=== PATIENT | male | born 1960 | race Caucasian/White ===

== ENCOUNTER 2024-07-01 17:10 | Inpatient (IN) | payer OTHER, MEDICAID ==
[~2024-07-01] VITALS: Ht 170.2 cm; Wt 46.6 kg
[2024-07-01] VITALS (12 sets, daily range): BP systolic 102–114; BP diastolic 62–68; PULSE 111–130; RESP 16–20; TEMP 100.2–103; O2SAT 95–100
[2024-07-01] MEDS ORDERED: 0.9% SODIUM CHLORIDE 10 ML SYRINGE IVP PRN (17:15)
[2024-07-01] MEDS: CefTRIAXone 1 GM/DEXTROSE 50 ML IV ONE (17:24)
[2024-07-01] MEDS: SODIUM CHLORIDE 0.9% 1,500 ML IV ONE (17:24)
[2024-07-01 17:29] LABS: ABG A-A DIFF O2 428.3 mmHg (10-20.0); ABG BASE EXCESS 3.8 mmol/L (-2.0-3.0); ABG HCO3 27.6 mmol/L (21.0-28.0); ABG METHEMOGLOBIN 1.9 % (0.0-1.5); ABG OXYGEN CONTENT 9.6 mL/dL (15.0-23.0); ABG OXYGEN SATURATION 99.7 % (94.0-98.0); ABG OXYHEMOGLOBIN 96.8 % (94.0-98.0); ABG PCO2 39 mmHg (32.0-48.0); ABG PH 7.466 (7.350-7.450); ABG TOTAL HEMOGLOBIN 6.5 G/dL (13.5-17.5); ALLEN TEST, BLOOD GAS Positive; O2 DEVICE,BLOOD GAS NON REBREATHER (ROOM AIR); PO2, ARTERIAL BG 250.5 mmHg (83.0-108.0); SITE, BLOOD GAS RT RADIAL; SOURCE, BLOOD GAS ARTERIAL; TEMPERATURE, FAHRENHEIT, BG 95.1 FAHREN (96.0-98.6)
[2024-07-01] MEDS: ALBUTEROL SULFATE 2.5 MG/0.5 ML NEB SOLUTION NEB ONE ×2 (17:30→17:36)
[2024-07-01] MEDS: IPRATROPIUM BROMIDE 0.5 MG/2.5 ML NEB SOLUTION NEB ONE ×2 (17:30→17:36)
[2024-07-01 17:51] LABS: BASOPHILS % (AUTO) 0.4 % (0.0-2.0); EOSINOPHILS % (AUTO) 0.8 % (1.0-6.0); HEMATOCRIT 21.6 % (41-53); LYMPHOCYTES # (AUTO) 0.8 K/uL (1.0-4.8); LYMPHOCYTES % (AUTO) 6.1 % (22.0-44.0); MEAN CORPUSCULAR HEMOGLOBIN 30.9 pg (26.0-34.0); MEAN CORPUSCULAR HGB CONC 30.8 G/dL (31.0-37.0); MEAN CORPUSCULAR VOLUME 101 fL (80-100); MONOCYTES # (AUTO) 1.5 K/uL (0.1-1.0); MONOCYTES % (AUTO) 11.6 % (2.0-9.0); NEUTROPHILS # (AUTO) 10.8 K/uL (1.8-7.7); NEUTROPHILS % (AUTO) 81.1 % (40.0-70.0); PLATELET COUNT (AUTO) 490 K/uL (150-450); RED BLOOD CELL COUNT(AUTO) 2.15 MIL/uL (4.50-5.90); RED CELL DISTRIBUTION WIDTH 19.4 % (11.5-14.5); WHITE BLOOD COUNT (AUTO) 13.3 K/uL (4.5-11.0)
[2024-07-01 17:52] LABS: APPEARANCE,URINE CLEAR (CLEAR); BILIRUBIN,URINE NEGATIVE (NEGATIVE); COLOR,URINE YELLOW (YELLOW); GLUCOSE, URINE (UA) NEGATIVE (NEGATIVE); KETONES,URINE NEGATIVE (NEGATIVE); LEUKOCYTE ESTERASE ,URINE NEGATIVE (NEGATIVE); NITRATE,URINE NEGATIVE (NEGATIVE); OCCULT BLOOD,URINE NEGATIVE (NEGATIVE); PH,URINE 5.5 (5.0-8.0); PROTEIN,URINE TRACE mg/dL (NEGATIVE); SPECIFIC GRAVITIY, URINE 1.017 (1.003-1.030); UROBILINOGEN,URINE <=1.0 mg/dL (<=1.0)
[2024-07-01 17:56] LABS: ANION GAP 7 mmol/L (8-16); CALCIUM, TOTAL 9.6 mg/dL (8.8-10.5); CARBON DIOXIDE 31 mmol/L (22-29); CHLORIDE 107 mmol/L (98-107); CREATININE 0.77 mg/dL (0.60-1.30); GLOMERULAR FILTR. RATE CALC > 60 mL/min (>60); GLUCOSE,RANDOM 110 mg/dL (70-110); POTASSIUM 4.3 mmol/L (3.5-5.1); SODIUM SERUM 145 mmol/L (136-145); UREA NITROGEN, BLOOD 28 mg/dL (7-18)
[2024-07-01 17:57] LABS: HEMOGLOBIN 6.6 g/dL (13.5-17.5)
[2024-07-01 17:59] LABS: PROTHROMBIN TIME 11.4 SEC (9.4-11.6)
[2024-07-01 18:05] LABS: TROPONIN I-HIGH SENSITIVITY 25 ng/L (<76)
[2024-07-01 18:06] LABS: LACTIC ACID 2.7 mmol/L (0.4-2.0)
[2024-07-01 18:16] LABS: RBC MORPHOLOGY COMMENT NORMAL RBC MORPH
[2024-07-01 18:53] LABS: B-TYPE NATRIURETIC PEPTIDE 53 pg/mL (0-100)
[2024-07-01] MEDS ORDERED: ALBUTEROL SULFATE 2.5 MG/0.5 ML NEB SOLUTION NEB PRN (19:45)
[2024-07-01] MEDS ORDERED: IPRATROPIUM BROMIDE 0.5 MG/2.5 ML NEB SOLUTION NEB PRN (19:45)
[2024-07-01] MEDS ORDERED: ONDANSETRON HCL 4 MG/2 ML VIAL IVP PRN (19:45)
[2024-07-01 20:13] LABS: % IRON SATURATION 3.7 % (30-44)
[2024-07-01 20:14] LABS: ALANINE AMINOTRANSFERASE 107 U/L (12-78); ALBUMIN 2.3 g/dL (3.4-5.0); ALKALINE PHOSPHATASE 225 U/L (46-116); ASPARTATE AMINOTRANSFERASE 60 U/L (15-37); BILIRUBIN,TOTAL 0.4 mg/dL (0.1-1.0); TOTAL PROTEIN, SERUM 6.5 g/dL (6.4-8.2)
[2024-07-01] MEDS: PIPERACILLIN/TAZO 3.375 GM/D5W 50 ML IV ONE (20:26)
[2024-07-01] MEDS: PANTOPRAZOLE SODIUM 80 MG in SODIUM CHLORIDE 0.9% 100 ML IV SCH (20:27)
[2024-07-01] MEDS: PANTOPRAZOLE SODIUM 40 MG/VIAL IVP ONE (20:27)
[2024-07-01] MEDS: DOCUSATE SODIUM 100 MG/10 ML LIQUID UDCUP GT SCH (21:00)
[2024-07-01] MEDS: ACETAMINOPHEN 1000 MG/ISO-OSM 100 ML IV ONE (21:24)
[2024-07-01] MEDS: ALBUTEROL SULFATE 2.5 MG/0.5 ML NEB SOLUTION NEB SCH (21:44)
[2024-07-01] MEDS: IPRATROPIUM BROMIDE 0.5 MG/2.5 ML NEB SOLUTION NEB SCH (21:44)
[2024-07-01] MEDS: CHLORHEXIDINE GLUCONATE 2% TOWELETTE [2'S/6'S] TP SCH (23:20)
[2024-07-01] MEDS: VANCOMYCIN 1.25 GM/WATER(PEG) 250 ML IV ONE (23:20)
[2024-07-02] VITALS (16 sets, daily range): BP systolic 91–102; BP diastolic 49–57; PULSE 96–111; RESP 17–20; TEMP 98–99.8; O2SAT 91–100
[2024-07-02] MEDS ORDERED: HEPARIN SODIUM,PORCINE 5,000 UNITS/ML VIAL SQ SCH
[2024-07-02] MEDS: PANTOPRAZOLE SODIUM 80 MG in SODIUM CHLORIDE 0.9% 100 ML IV SCH (05:07)
[2024-07-02] MEDS: PIPERACILLIN/TAZO 3.375 GM/D5W 50 ML IV SCH (05:08)
[2024-07-02 05:53] LABS: BASOPHILS % (AUTO) 0.2 % (0.0-2.0); EOSINOPHILS % (AUTO) 0.3 % (1.0-6.0); HEMATOCRIT 27.9 % (41-53); HEMOGLOBIN 8.8 g/dL (13.5-17.5); LYMPHOCYTES # (AUTO) 1.2 K/uL (1.0-4.8); LYMPHOCYTES % (AUTO) 7.5 % (22.0-44.0); MEAN CORPUSCULAR HEMOGLOBIN 31.2 pg (26.0-34.0); MEAN CORPUSCULAR HGB CONC 31.7 G/dL (31.0-37.0); MEAN CORPUSCULAR VOLUME 98 fL (80-100); MONOCYTES # (AUTO) 2.2 K/uL (0.1-1.0); MONOCYTES % (AUTO) 13.1 % (2.0-9.0); NEUTROPHILS % (AUTO) 78.9 % (40.0-70.0); PLATELET COUNT (AUTO) 423 K/uL (150-450); RED BLOOD CELL COUNT(AUTO) 2.83 MIL/uL (4.50-5.90); RED CELL DISTRIBUTION WIDTH 18.3 % (11.5-14.5); WHITE BLOOD COUNT (AUTO) 16.5 K/uL (4.5-11.0)
[2024-07-02 06:10] LABS: ANION GAP 11 mmol/L (8-16); CALCIUM, TOTAL 9.1 mg/dL (8.8-10.5); CARBON DIOXIDE 26 mmol/L (22-29); CHLORIDE 111 mmol/L (98-107); GLOMERULAR FILTR. RATE CALC > 60 mL/min (>60); GLUCOSE,RANDOM 87 mg/dL (70-110); POTASSIUM 3.9 mmol/L (3.5-5.1); SODIUM SERUM 148 mmol/L (136-145); UREA NITROGEN, BLOOD 23 mg/dL (7-18)
[2024-07-02] MEDS ORDERED: VANCOMYCIN HCL 750 MG in DEXTROSE 5%-WATER 250 ML IV SCH (08:00)
[2024-07-02] MEDS ORDERED: ASPIRIN 81 MG CHEWABLE TABLET GT SCH (08:00)
[2024-07-02] MEDS: VANCOMYCIN 1.5 GM/WATER(PEG) 300 ML IV SCH (09:20)
[2024-07-02] MEDS: PIPERACILLIN SODIUM/TAZOBACTAM 4.5 GM in DEXTROSE 5%-WATER 100 ML IV SCH (09:55)
[2024-07-02] MEDS: ATORVASTATIN CALCIUM 40 MG TABLET GT SCH (09:55)
[2024-07-02] MEDS ORDERED: 0.9% SODIUM CHLORIDE 10 ML SYRINGE IVP ONE (17:06)
[2024-07-02] MEDS ORDERED: IOHEXOL 350 MG/ML 100 ML VIAL ONE (17:07)
[2024-07-02 20:27] LABS: INFLUENZA A-RTPCR,COMBO NEGATIVE (NEGATIVE); INFLUENZA B-RTPCR,COMBO NEGATIVE (NEGATIVE); RESPIRATORY SYNCYTIAL VRS-PCR NEGATIVE (NEGATIVE); SARS COVID19 RTPCR, COMBO NEGATIVE (NEGATIVE)
[2024-07-02] MEDS: HEPARIN SODIUM,PORCINE 5,000 UNITS/ML VIAL SQ SCH (23:21)
[2024-07-02] MEDS: SODIUM CHLORIDE 0.9% 1,000 ML IV ONE (23:24)
[2024-07-03] VITALS (13 sets, daily range): BP systolic 100–125; BP diastolic 53–71; PULSE 84–108; RESP 17–18; TEMP 97.9–98.9; O2SAT 96–99
[2024-07-03 07:00] LABS: BASOPHILS % (AUTO) 0.3 % (0.0-2.0); EOSINOPHILS % (AUTO) 2.1 % (1.0-6.0); HEMATOCRIT 21.9 % (41-53); HEMOGLOBIN 7.2 g/dL (13.5-17.5); LYMPHOCYTES # (AUTO) 0.9 K/uL (1.0-4.8); LYMPHOCYTES % (AUTO) 6.4 % (22.0-44.0); MEAN CORPUSCULAR HEMOGLOBIN 31.5 pg (26.0-34.0); MEAN CORPUSCULAR HGB CONC 32.9 G/dL (31.0-37.0); MEAN CORPUSCULAR VOLUME 96 fL (80-100); MONOCYTES # (AUTO) 1.5 K/uL (0.1-1.0); MONOCYTES % (AUTO) 10.3 % (2.0-9.0); NEUTROPHILS # (AUTO) 11.5 K/uL (1.8-7.7); NEUTROPHILS % (AUTO) 80.9 % (40.0-70.0); PLATELET COUNT (AUTO) 431 K/uL (150-450); RED BLOOD CELL COUNT(AUTO) 2.29 MIL/uL (4.50-5.90); RED CELL DISTRIBUTION WIDTH 18.9 % (11.5-14.5); WHITE BLOOD COUNT (AUTO) 14.2 K/uL (4.5-11.0)
[2024-07-03 07:32] LABS: ANION GAP 11 mmol/L (8-16); CALCIUM, TOTAL 9.5 mg/dL (8.8-10.5); CARBON DIOXIDE 25 mmol/L (22-29); CHLORIDE 112 mmol/L (98-107); CREATININE 0.67 mg/dL (0.60-1.30); GLOMERULAR FILTR. RATE CALC > 60 mL/min (>60); GLUCOSE,RANDOM 88 mg/dL (70-110); SODIUM SERUM 148 mmol/L (136-145); UREA NITROGEN, BLOOD 20 mg/dL (7-18); VANCOMYCIN,RANDOM 40.5 mcg/mL (25.0-50.0)
[2024-07-03] MEDS: ASPIRIN 81 MG CHEWABLE TABLET GT SCH (08:39)
[2024-07-03] MEDS: DEXTROSE 5%-WATER 1,000 ML IV ONE (14:27)
[2024-07-03 17:49] LABS: TROPONIN I-HIGH SENSITIVITY 74 ng/L (<76)
[2024-07-03] MEDS: POTASSIUM CHLORIDE 10% 40 MEQ/30 ML LIQUID UDCUP PEG ONE (20:54)
[2024-07-03] MEDS: VANCOMYCIN HCL 750 MG in DEXTROSE 5%-WATER 250 ML IV SCH (20:55)
[2024-07-04] VITALS (17 sets, daily range): BP systolic 106–119; BP diastolic 60–82; PULSE 95–118; RESP 17–24; TEMP 98–99.5; O2SAT 92–100
[2024-07-04 07:43] LABS: BASOPHILS % (AUTO) 0.4 % (0.0-2.0); EOSINOPHILS % (AUTO) 1.4 % (1.0-6.0); HEMATOCRIT 22.3 % (41-53); HEMOGLOBIN 7.1 g/dL (13.5-17.5); LYMPHOCYTES # (AUTO) 0.8 K/uL (1.0-4.8); LYMPHOCYTES % (AUTO) 5.1 % (22.0-44.0); MEAN CORPUSCULAR HEMOGLOBIN 30.2 pg (26.0-34.0); MEAN CORPUSCULAR HGB CONC 31.6 G/dL (31.0-37.0); MEAN CORPUSCULAR VOLUME 96 fL (80-100); MONOCYTES # (AUTO) 1.8 K/uL (0.1-1.0); MONOCYTES % (AUTO) 11.9 % (2.0-9.0); NEUTROPHILS % (AUTO) 81.2 % (40.0-70.0); PLATELET COUNT (AUTO) 458 K/uL (150-450); RED BLOOD CELL COUNT(AUTO) 2.33 MIL/uL (4.50-5.90); RED CELL DISTRIBUTION WIDTH 18.4 % (11.5-14.5); WHITE BLOOD COUNT (AUTO) 14.8 K/uL (4.5-11.0)
[2024-07-04 07:55] LABS: ANION GAP 6 mmol/L (8-16); CALCIUM, TOTAL 8.9 mg/dL (8.8-10.5); CARBON DIOXIDE 29 mmol/L (22-29); CHLORIDE 107 mmol/L (98-107); CREATININE 0.61 mg/dL (0.60-1.30); GLOMERULAR FILTR. RATE CALC > 60 mL/min (>60); GLUCOSE,RANDOM 113 mg/dL (70-110); POTASSIUM 3.1 mmol/L (3.5-5.1); SODIUM SERUM 142 mmol/L (136-145); UREA NITROGEN, BLOOD 12 mg/dL (7-18)
[2024-07-04 08:01] LABS: TROPONIN I-HIGH SENSITIVITY 43 ng/L (<76)
[2024-07-04] MEDS ORDERED: POTASSIUM CHL 10 MEQ/WATER 50 ML IV PRN (12:00)
[2024-07-04] MEDS: SCOPOLAMINE HYDROBROMIDE 1 MG/72 HOUR PATCH TD SCH (13:34)
[2024-07-04] MEDS: POTASSIUM CHLORIDE 10% 40 MEQ/30 ML LIQUID UDCUP GT PRN (16:26)
[2024-07-04] MEDS: FUROSEMIDE 20 MG/2 ML VIAL IVP ONE (16:26)
[2024-07-04] MEDS: THIAMINE 100 MG/ML 2 ML VIAL IVP SCH (16:30)
[2024-07-04] MEDS: MULTIVITAMINS, THERAPEUTIC 15 ML UDCUP GT SCH (16:31)
[2024-07-04] MEDS ORDERED: SODIUM CHLORIDE 0.9% 250 ML IV ONE (20:41)
[2024-07-05] VITALS (21 sets, daily range): BP systolic 90–117; BP diastolic 46–70; PULSE 81–108; RESP 17–20; TEMP 97.6–99.6; O2SAT 96–100
[2024-07-05] MEDS: ACETAMINOPHEN 325 MG TABLET PO PRN (00:33)
[2024-07-05] MEDS ORDERED: SODIUM CHLORIDE 0.9% 100 ML ONE (03:04)
[2024-07-05 06:52] LABS: ANION GAP 5 mmol/L (8-16); CALCIUM, TOTAL 9.4 mg/dL (8.8-10.5); CARBON DIOXIDE 29 mmol/L (22-29); CHLORIDE 101 mmol/L (98-107); CREATININE 0.68 mg/dL (0.60-1.30); GLOMERULAR FILTR. RATE CALC > 60 mL/min (>60); GLUCOSE,RANDOM 109 mg/dL (70-110); POTASSIUM 3.1 mmol/L (3.5-5.1); SODIUM SERUM 139 mmol/L (136-145); UREA NITROGEN, BLOOD 5 mg/dL (7-18); VANCOMYCIN,RANDOM 24.8 mcg/mL (25.0-50.0)
[2024-07-05 13:22] LABS: HEMATOCRIT 28.1 % (41-53); HEMOGLOBIN 9.3 g/dL (13.5-17.5)
[2024-07-05 13:46] LABS: GLUCOMETER DEV NAME(LOC) 5N.2C; GLUCOSE,POINT OF CARE 106 MG/DL (70-110)
[2024-07-05] MEDS: PIPERACILLIN/TAZO 3.375 GM/D5W 50 ML IV SCH (17:19)
[2024-07-06] VITALS (15 sets, daily range): BP systolic 111–140; BP diastolic 63–73; PULSE 97–131; RESP 16–24; TEMP 97.4–98.4; O2SAT 90–100
[2024-07-06 04:16] LABS: GLUCOMETER DEV NAME(LOC) 5S.2D; GLUCOSE,POINT OF CARE 82 MG/DL (70-110)
[2024-07-06 04:16] LABS: GLUCOMETER DEV NAME(LOC) 5S.2D; GLUCOSE,POINT OF CARE 106 MG/DL (70-110)
[2024-07-06 07:23] LABS: HEMATOCRIT 27.2 % (41-53); HEMOGLOBIN 8.8 g/dL (13.5-17.5)
[2024-07-06 07:37] LABS: ANION GAP 7 mmol/L (8-16); CALCIUM, TOTAL 9.3 mg/dL (8.8-10.5); CARBON DIOXIDE 29 mmol/L (22-29); CHLORIDE 100 mmol/L (98-107); CREATININE 0.65 mg/dL (0.60-1.30); GLOMERULAR FILTR. RATE CALC > 60 mL/min (>60); GLUCOSE,RANDOM 83 mg/dL (70-110); POTASSIUM 3.2 mmol/L (3.5-5.1); SODIUM SERUM 136 mmol/L (136-145); UREA NITROGEN, BLOOD 8 mg/dL (7-18)
[2024-07-06] MEDS: VANCOMYCIN 500 MG/WATER(PEG) 100 ML IV SCH (09:27)
[2024-07-06 11:16] LABS: GLUCOMETER DEV NAME(LOC) 5S.2D; GLUCOSE,POINT OF CARE 93 MG/DL (70-110)
[2024-07-06] MEDS ORDERED: SODIUM CHLORIDE 0.9% 250 ML IV ONE (17:56)
[2024-07-07] VITALS (13 sets, daily range): BP systolic 116–150; BP diastolic 65–92; PULSE 102–127; RESP 18–24; TEMP 97.1–100.2; O2SAT 90–100
[2024-07-07 00:06] LABS: GLUCOMETER DEV NAME(LOC) 5N.2C; GLUCOSE,POINT OF CARE 106 MG/DL (70-110)
[2024-07-07 00:06] LABS: GLUCOMETER DEV NAME(LOC) 5S.2D; GLUCOSE,POINT OF CARE 118 MG/DL (70-110)
[2024-07-07 01:16] LABS: GLUCOMETER DEV NAME(LOC) 5N.2C; GLUCOSE,POINT OF CARE 112 MG/DL (70-110)
[2024-07-07 07:45] LABS: ANION GAP 7 mmol/L (8-16); CALCIUM, TOTAL 9.4 mg/dL (8.8-10.5); CARBON DIOXIDE 32 mmol/L (22-29); CHLORIDE 100 mmol/L (98-107); CREATININE 0.58 mg/dL (0.60-1.30); GLOMERULAR FILTR. RATE CALC > 60 mL/min (>60); GLUCOSE,RANDOM 99 mg/dL (70-110); POTASSIUM 3.6 mmol/L (3.5-5.1); SODIUM SERUM 139 mmol/L (136-145); UREA NITROGEN, BLOOD 8 mg/dL (7-18)
[2024-07-07 09:13] LABS: HEMATOCRIT 28.8 % (41-53); HEMOGLOBIN 9.2 g/dL (13.5-17.5)
[2024-07-07 12:41] LABS: GLUCOMETER DEV NAME(LOC) 5N.2C; GLUCOSE,POINT OF CARE 121 MG/DL (70-110)
[2024-07-07 13:26] LABS: GLUCOMETER DEV NAME(LOC) 5S.2D; GLUCOSE,POINT OF CARE 130 MG/DL (70-110)
[2024-07-07 19:15] LABS: GLUCOMETER DEV NAME(LOC) 5S.2D; GLUCOSE,POINT OF CARE 124 MG/DL (70-110)
[2024-07-08] VITALS (15 sets, daily range): BP systolic 105–138; BP diastolic 57–75; PULSE 88–135; RESP 18–24; TEMP 97.8–100.5; O2SAT 92–100
[2024-07-08 01:40] LABS: GLUCOMETER DEV NAME(LOC) 5S.2D; GLUCOSE,POINT OF CARE 137 MG/DL (70-110)
[2024-07-08 08:10] LABS: ANION GAP 3 mmol/L (8-16); CALCIUM, TOTAL 9.4 mg/dL (8.8-10.5); CARBON DIOXIDE 36 mmol/L (22-29); CHLORIDE 100 mmol/L (98-107); CREATININE 0.62 mg/dL (0.60-1.30); GLOMERULAR FILTR. RATE CALC > 60 mL/min (>60); GLUCOSE,RANDOM 116 mg/dL (70-110); POTASSIUM 3.2 mmol/L (3.5-5.1); SODIUM SERUM 139 mmol/L (136-145); UREA NITROGEN, BLOOD 8 mg/dL (7-18); VANCOMYCIN,RANDOM 12.5 mcg/mL (25.0-50.0)
[2024-07-08 09:36] LABS: HEMATOCRIT 30.2 % (41-53); HEMOGLOBIN 9.7 g/dL (13.5-17.5)
[2024-07-08 11:40] LABS: GLUCOMETER DEV NAME(LOC) 5S.2D; GLUCOSE,POINT OF CARE 120 MG/DL (70-110)
[2024-07-08 17:26] LABS: GLUCOMETER DEV NAME(LOC) 5S.2D; GLUCOSE,POINT OF CARE 133 MG/DL (70-110)
[2024-07-08 18:35] LABS: GLUCOMETER DEV NAME(LOC) 5S.2D; GLUCOSE,POINT OF CARE 140 MG/DL (70-110)
[2024-07-08] MEDS: PANTOPRAZOLE SODIUM 40 MG/VIAL IVP SCH (19:59)
[2024-07-08] MEDS: VANCOMYCIN HCL 750 MG in DEXTROSE 5%-WATER 250 ML IV SCH (19:59)
[2024-07-08] MEDS: METOPROLOL TARTRATE 5 MG/5 ML VIAL IVP ONE (22:33)
[2024-07-09] VITALS (9 sets, daily range): BP systolic 96–117; BP diastolic 56–64; PULSE 116–139; RESP 18–29; TEMP 98.7–100.8; O2SAT 92–98
[2024-07-09] MEDS: METOPROLOL TARTRATE 5 MG/5 ML VIAL IVP ONE (00:42)
[2024-07-09 01:25] LABS: GLUCOMETER DEV NAME(LOC) 5S.2D; GLUCOSE,POINT OF CARE 202 MG/DL (70-110)
[2024-07-09 05:31] LABS: GLUCOMETER DEV NAME(LOC) 5S.2D; GLUCOSE,POINT OF CARE 131 MG/DL (70-110)
[2024-07-09 07:10] LABS: HEMATOCRIT 31.6 % (41-53); HEMOGLOBIN 10.1 g/dL (13.5-17.5)
[2024-07-09 07:26] LABS: ANION GAP 6 mmol/L (8-16); CARBON DIOXIDE 33 mmol/L (22-29); CHLORIDE 100 mmol/L (98-107); CREATININE 0.89 mg/dL (0.60-1.30); GLOMERULAR FILTR. RATE CALC > 60 mL/min (>60); GLUCOSE,RANDOM 122 mg/dL (70-110); SODIUM SERUM 139 mmol/L (136-145); UREA NITROGEN, BLOOD 18 mg/dL (7-18)
[2024-07-09 08:53] LABS: BASOPHILS % (AUTO) 0.5 % (0.0-2.0); EOSINOPHILS % (AUTO) 0.6 % (1.0-6.0); HEMATOCRIT 30.9 % (41-53); HEMOGLOBIN 9.9 g/dL (13.5-17.5); LYMPHOCYTES # (AUTO) 0.5 K/uL (1.0-4.8); MEAN CORPUSCULAR HEMOGLOBIN 29.8 pg (26.0-34.0); MEAN CORPUSCULAR HGB CONC 32.1 G/dL (31.0-37.0); MEAN CORPUSCULAR VOLUME 93 fL (80-100); MONOCYTES # (AUTO) 1.7 K/uL (0.1-1.0); PLATELET COUNT (AUTO) 714 K/uL (150-450); RED BLOOD CELL COUNT(AUTO) 3.33 MIL/uL (4.50-5.90); RED CELL DISTRIBUTION WIDTH 18.4 % (11.5-14.5); WHITE BLOOD COUNT (AUTO) 18.4 K/uL (4.5-11.0)
[2024-07-09 09:01] LABS: NEUTROPHILS % (AUTO) 86.9 % (40.0-70.0)
[2024-07-09 09:22] LABS: ABG BASE EXCESS 7.4 mmol/L (-2.0-3.0); ABG CARBOXYHEMOGLOBIN 0.1 % (0.5-1.5); ABG HCO3 30.2 mmol/L (21.0-28.0); ABG METHEMOGLOBIN 0.3 % (0.0-1.5); ABG OXYGEN CONTENT 15.5 mL/dL (15.0-23.0); ABG OXYGEN SATURATION 99.2 % (94.0-98.0); ABG OXYHEMOGLOBIN 98.8 % (94.0-98.0); ABG PCO2 53 mmHg (32.0-48.0); ABG PH 7.403 (7.350-7.450); PO2, ARTERIAL BG 142.4 mmHg (83.0-108.0); SOURCE, BLOOD GAS ARTERIAL; TEMPERATURE, FAHRENHEIT, BG 99.5 FAHREN (96.0-98.6)
[2024-07-09 09:23] LABS: ALLEN TEST, BLOOD GAS POS; O2 DEVICE,BLOOD GAS NON-REB (ROOM AIR); SITE, BLOOD GAS LFT BRACHIAL
[2024-07-09 09:32] LABS: THYROID STIMULATING HORMONE 1.81 uIU/mL (0.36-3.74)
[2024-07-09] MEDS: FUROSEMIDE 20 MG/2 ML VIAL IVP ONE (10:20)
[2024-07-09 12:31] LABS: GLUCOMETER DEV NAME(LOC) 5S.2D; GLUCOSE,POINT OF CARE 179 MG/DL (70-110)
[2024-07-09 18:46] LABS: GLUCOMETER DEV NAME(LOC) 5S.2D; GLUCOSE,POINT OF CARE 159 MG/DL (70-110)
[2024-07-09 19:50] LABS: INFLUENZA A-RTPCR,COMBO NEGATIVE (NEGATIVE); INFLUENZA B-RTPCR,COMBO NEGATIVE (NEGATIVE); RESPIRATORY SYNCYTIAL VRS-PCR NEGATIVE (NEGATIVE); SARS COVID19 RTPCR, COMBO NEGATIVE (NEGATIVE)
[2024-07-09 21:26] LABS: GLUCOMETER DEV NAME(LOC) 5N.1D; GLUCOSE,POINT OF CARE 159 MG/DL (70-110)
[2024-07-10] VITALS (15 sets, daily range): BP systolic 97–137; BP diastolic 55–92; PULSE 107–138; RESP 20–28; TEMP 98.4–99.9; O2SAT 93–99
[2024-07-10 01:16] LABS: GLUCOMETER DEV NAME(LOC) 5S.2D; GLUCOSE,POINT OF CARE 157 MG/DL (70-110)
[2024-07-10 06:21] LABS: GLUCOMETER DEV NAME(LOC) 5N.2C; GLUCOSE,POINT OF CARE 132 MG/DL (70-110)
[2024-07-10 07:46] LABS: HEMATOCRIT 27.3 % (41-53); HEMOGLOBIN 8.9 g/dL (13.5-17.5)
[2024-07-10 08:03] LABS: ANION GAP 3 mmol/L (8-16); CALCIUM, TOTAL 9.3 mg/dL (8.8-10.5); CARBON DIOXIDE 37 mmol/L (22-29); CHLORIDE 98 mmol/L (98-107); CREATININE 0.65 mg/dL (0.60-1.30); GLOMERULAR FILTR. RATE CALC > 60 mL/min (>60); GLUCOSE,RANDOM 139 mg/dL (70-110); SODIUM SERUM 138 mmol/L (136-145); UREA NITROGEN, BLOOD 18 mg/dL (7-18)
[2024-07-10 09:18] LABS: CANDIDA AURIS PCR,SURVEILLANCE Not Detected C(t) (Not Detectd)
[2024-07-10] MEDS: FUROSEMIDE 20 MG/2 ML VIAL IVP ONE (13:57)
[2024-07-10 17:21] LABS: GLUCOMETER DEV NAME(LOC) 5N.2C; GLUCOSE,POINT OF CARE 128 MG/DL (70-110)
[2024-07-10] MEDS: METOPROLOL TARTRATE 5 MG/5 ML VIAL IVP ONE (17:35)
[2024-07-11] VITALS (13 sets, daily range): BP systolic 101–128; BP diastolic 66–78; PULSE 115–127; RESP 16–27; TEMP 97.8–99.5; O2SAT 95–100
[2024-07-11 00:20] LABS: GLUCOMETER DEV NAME(LOC) 5N.2C; GLUCOSE,POINT OF CARE 145 MG/DL (70-110)
[2024-07-11 06:36] LABS: BASOPHILS % (AUTO) 0.2 % (0.0-2.0); EOSINOPHILS % (AUTO) 1.8 % (1.0-6.0); HEMATOCRIT 29.4 % (41-53); HEMOGLOBIN 9.5 g/dL (13.5-17.5); LYMPHOCYTES # (AUTO) 1.3 K/uL (1.0-4.8); LYMPHOCYTES % (AUTO) 5.7 % (22.0-44.0); MEAN CORPUSCULAR HEMOGLOBIN 29.7 pg (26.0-34.0); MEAN CORPUSCULAR HGB CONC 32.4 G/dL (31.0-37.0); MEAN CORPUSCULAR VOLUME 92 fL (80-100); MONOCYTES # (AUTO) 1.6 K/uL (0.1-1.0); NEUTROPHILS # (AUTO) 19.2 K/uL (1.8-7.7); PLATELET COUNT (AUTO) 657 K/uL (150-450); RED CELL DISTRIBUTION WIDTH 18.2 % (11.5-14.5); WHITE BLOOD COUNT (AUTO) 22.5 K/uL (4.5-11.0)
[2024-07-11 06:40] LABS: NEUTROPHILS % (AUTO) 85.3 % (40.0-70.0)
[2024-07-11 06:54] LABS: ANION GAP 2 mmol/L (8-16); CALCIUM, TOTAL 9.9 mg/dL (8.8-10.5); CARBON DIOXIDE 39 mmol/L (22-29); CHLORIDE 98 mmol/L (98-107); CREATININE 0.61 mg/dL (0.60-1.30); GLOMERULAR FILTR. RATE CALC > 60 mL/min (>60); GLUCOSE,RANDOM 131 mg/dL (70-110); POTASSIUM 3.8 mmol/L (3.5-5.1); SODIUM SERUM 139 mmol/L (136-145); UREA NITROGEN, BLOOD 17 mg/dL (7-18)
[2024-07-11 07:51] LABS: GLUCOMETER DEV NAME(LOC) 5N.2C; GLUCOSE,POINT OF CARE 138 MG/DL (70-110)
[2024-07-11] MEDS: METOPROLOL TARTRATE 5 MG/5 ML VIAL IVP PRN (13:49)
[2024-07-12] VITALS (12 sets, daily range): BP systolic 104–126; BP diastolic 63–75; PULSE 103–112; RESP 19–22; TEMP 97.4–99.2; O2SAT 91–100
[2024-07-12 05:01] LABS: GLUCOMETER DEV NAME(LOC) 5N.2C; GLUCOSE,POINT OF CARE 126 MG/DL (70-110)
[2024-07-12 07:31] LABS: GLUCOMETER DEV NAME(LOC) 5N.2C; GLUCOSE,POINT OF CARE 146 MG/DL (70-110)
[2024-07-12] MEDS ORDERED: SODIUM CHLORIDE 0.9% 250 ML IV ONE ×2 (08:33→22:17)
[2024-07-12 20:31] LABS: GLUCOMETER DEV NAME(LOC) 5N.2C; GLUCOSE,POINT OF CARE 149 MG/DL (70-110)
[2024-07-13] VITALS (14 sets, daily range): BP systolic 117–132; BP diastolic 65–83; PULSE 54–121; RESP 16–26; TEMP 97.8–99.1; O2SAT 90–100
[2024-07-13 07:10] LABS: ANION GAP 2 mmol/L (8-16); CALCIUM, TOTAL 9.8 mg/dL (8.8-10.5); CARBON DIOXIDE 37 mmol/L (22-29); CHLORIDE 98 mmol/L (98-107); CREATININE 0.61 mg/dL (0.60-1.30); GLOMERULAR FILTR. RATE CALC > 60 mL/min (>60); GLUCOSE,RANDOM 141 mg/dL (70-110); POTASSIUM 3.5 mmol/L (3.5-5.1); SODIUM SERUM 137 mmol/L (136-145); UREA NITROGEN, BLOOD 19 mg/dL (7-18)
[2024-07-13] MEDS ORDERED: SODIUM CHLORIDE 0.9% 1,000 ML ONE (21:15)
[2024-07-14] VITALS (10 sets, daily range): BP systolic 112–139; BP diastolic 70–84; PULSE 100–135; RESP 17–31; TEMP 97.8–99; O2SAT 84–98
[2024-07-14] MEDS ORDERED: MORPHINE SULFATE 2 MG/ML SYRINGE IVP PRN (12:30)
[2024-07-14 13:06] LABS: BASOPHILS % (AUTO) 0.6 % (0.0-2.0); EOSINOPHILS % (AUTO) 1.1 % (1.0-6.0); HEMATOCRIT 32.9 % (41-53); HEMOGLOBIN 10.3 g/dL (13.5-17.5); LYMPHOCYTES # (AUTO) 1.1 K/uL (1.0-4.8); LYMPHOCYTES % (AUTO) 4.6 % (22.0-44.0); MEAN CORPUSCULAR HEMOGLOBIN 28.7 pg (26.0-34.0); MEAN CORPUSCULAR HGB CONC 31.2 G/dL (31.0-37.0); MEAN CORPUSCULAR VOLUME 92 fL (80-100); MONOCYTES # (AUTO) 2.3 K/uL (0.1-1.0); MONOCYTES % (AUTO) 9.2 % (2.0-9.0); NEUTROPHILS # (AUTO) 20.7 K/uL (1.8-7.7); NEUTROPHILS % (AUTO) 84.5 % (40.0-70.0); RED BLOOD CELL COUNT(AUTO) 3.57 MIL/uL (4.50-5.90); RED CELL DISTRIBUTION WIDTH 18.4 % (11.5-14.5); WHITE BLOOD COUNT (AUTO) 24.5 K/uL (4.5-11.0)
[2024-07-14 13:15] LABS: ANION GAP 4 mmol/L (8-16); CARBON DIOXIDE 37 mmol/L (22-29); CHLORIDE 100 mmol/L (98-107); CREATININE 0.53 mg/dL (0.60-1.30); GLOMERULAR FILTR. RATE CALC > 60 mL/min (>60); GLUCOSE,RANDOM 143 mg/dL (70-110); POTASSIUM 3.8 mmol/L (3.5-5.1); SODIUM SERUM 141 mmol/L (136-145); UREA NITROGEN, BLOOD 20 mg/dL (7-18)
[2024-07-14 13:22] LABS: PLATELET COUNT (AUTO) 785 K/uL (150-450)
[2024-07-15 00:17] VITALS: BP 131/78; PULSE 130; RESP 18; TEMP 98.6; O2SAT 90
[2024-07-15 02:16] VITALS: PULSE 127; RESP 26; O2SAT 92
[2024-07-15 04:30] VITALS: BP 63/34; PULSE 49; RESP 15; O2SAT 73
[2024-07-15] MEDS ORDERED: SODIUM CHLORIDE 0.9% 250 ML IV ONE ×2 (04:43→04:45)
[2024-07-15 06:10] LABS: GLUCOMETER DEV NAME(LOC) 5N.2C; GLUCOSE,POINT OF CARE 240 MG/DL (70-110)
== END 2024-07-15 07:50 | DRG 871 ==
LOC: EMS 17:10 → EDH 18:51 → ICU 22:40 → 5S 07-02 18:30
PROVIDERS: ADMIT Internal Medicine; ATTEND Internal Medicine
PROC: 30233N1 Transfusion of Nonautologous Red Blood Cells into Peripheral Vein, Percutaneous Approach (ICD-10-PCS; principal; 2024-07-05)
DX: A41.9 Sepsis, unspecified organism (principal); E43 Unspecified severe protein-calorie malnutrition; G93.41 Metabolic encephalopathy; J69.0 Pneumonitis due to inhalation of food and vomit; J96.01 Acute respiratory failure with hypoxia; I50.33 Acute on chronic diastolic (congestive) heart failure; E87.0 Hyperosmolality and hypernatremia; Z68.1 Body mass index [BMI] 19.9 or less, adult; K92.1 Melena; Z20.822 Contact with and (suspected) exposure to COVID-19; R65.20 Severe sepsis without septic shock; Z66 Do not resuscitate; D50.9 Iron deficiency anemia, unspecified; E04.2 Nontoxic multinodular goiter; R68.0 Hypothermia, not associated with low environmental temperature; E87.6 Hypokalemia; I46.9 Cardiac arrest, cause unspecified; R13.10 Dysphagia, unspecified; D49.6 Neoplasm of unspecified behavior of brain; Z86.73 Personal history of transient ischemic attack (TIA), and cerebral infarction without residual deficits; Z85.841 Personal history of malignant neoplasm of brain; Z92.3 Personal history of irradiation; Z51.5 Encounter for palliative care; Z93.1 Gastrostomy status; Z79.899 Other long term (current) drug therapy
CPT/HCPCS: 0241U; 36600; 70450; 71045; 71275; 80048; 80076; 80202; 81003; 82271; 82805; 82962; 83540; 83550; 83605; 83735; 83880; 84132; 84145; 84443; 84484; 85014; 85018; 85025; 85045; 85610; 86850; 86900; 86901; 86923; 87040; 87081; 87481; 93005; 93306; 94640; 94799; 99291; G0378; J0131; J0696; J1644; J1940; J2470; J2543; J3370; J3411; J3490; J7030; J7050; J7060; P9016; 36415-L1; 36415-TC; J7613